=== PATIENT | female | born 1995 | race Caucasian/White ===

== ENCOUNTER 2022-07-28 00:05 | Inpatient (IN) | payer SELFPAY ==
[2022-07-28] MEDS ORDERED: Lidocaine 1% 50 ML MDV INJECT ONE (00:16)
[2022-07-28] MEDS ORDERED: Sodium Chloride 0.9% 10 ML Syringe FLUSH PRN (00:16)
[2022-07-28] MEDS ORDERED: Nalbuphine 10 MG/0.5 ML Syringe IVPUSH PRN (00:16)
[2022-07-28] MEDS: Lactated Ringers 1,000 ML IV SCH ×2 (00:25→01:11)
[2022-07-28] MEDS ORDERED: Oxytocin/Lactated Ringers 10 UNIT/1,000 ML BAG IV SCH (00:30)
[2022-07-28] MEDS ORDERED: diphenhydrAMINE 50 MG/ML SDV IVPUSH PRN (00:38)
[2022-07-28] MEDS ORDERED: fentaNYL 100 MCG/2 ML SDV EPIDUR PRN (00:38)
[2022-07-28] MEDS ORDERED: Bupivacaine/fentaNYL/NS 100 ML Bag EPIDUR PRN (00:38)
[2022-07-28] MEDS ORDERED: ePHEDrine 50 MG/ML SDV IVPUSH PRN (00:38)
[2022-07-28] MEDS ORDERED: Benzocaine/Menthol 20%-0.5% Spray 78 GM Cannister TOP PRN (05:03)
[2022-07-28] MEDS ORDERED: Witch Hazel Medicated Pads 40/Jar TOP PRN (05:03)
[2022-07-28] MEDS: Ibuprofen 600 MG Tab PO PRN ×2 (05:25→15:01)
[2022-07-28] MEDS ORDERED: Sodium Chloride 0.9% 10 ML Syringe FLUSH SCH (09:00)
[2022-07-28] MEDS: Acetaminophen 325 MG Tab PO PRN (20:07)
[2022-07-28] MEDS: Docusate Sodium 100 MG Cap PO PRN (20:08)
[2022-07-29] MEDS: Ibuprofen 600 MG Tab PO PRN (07:30)
[2022-07-29] MEDS: Docusate Sodium 100 MG Cap PO PRN (07:33)
[2022-07-29] MEDS: Acetaminophen 325 MG Tab PO PRN (11:17)
== END 2022-07-29 15:00 | disposition home or self-care (01) | DRG 807 ==
LOC: JD.OBCHECK 00:05 → JD.OB 00:10 → JD.OBCHECK 00:15 → JD.OB 00:16 → OBSVTOIN 01:34 → JD.MS 01:35 → JD.OB 18:36
PROVIDERS: ADMIT Obstetrics & Gynecology; ATTEND Obstetrics & Gynecology
PROC: 10D07Z6 Extraction of Products of Conception, Vacuum, Via Natural or Artificial Opening (ICD-10-PCS; principal; 2022-07-28)
PROC: 0KQM0ZZ Repair Perineum Muscle, Open Approach (ICD-10-PCS; 2022-07-28)
PROC: 10907ZC Drainage of Amniotic Fluid, Therapeutic from Products of Conception, Via Natural or Artificial Opening (ICD-10-PCS; 2022-07-28)
PROC: 3E0R3BZ Introduction of Anesthetic Agent into Spinal Canal, Percutaneous Approach (ICD-10-PCS; 2022-07-28)
PROC: 00HU33Z Insertion of Infusion Device into Spinal Canal, Percutaneous Approach (ICD-10-PCS; 2022-07-28)
DX: O60.14X0 Preterm labor third trimester with preterm delivery third trimester, not applicable or unspecified (principal); Z37.0 Single live birth; O77.0 Labor and delivery complicated by meconium in amniotic fluid; O70.1 Second degree perineal laceration during delivery; E66.01 Morbid (severe) obesity due to excess calories; O99.214 Obesity complicating childbirth; O34.219 Maternal care for unspecified type scar from previous cesarean delivery; Z3A.36 36 weeks gestation of pregnancy; Z90.49 Acquired absence of other specified parts of digestive tract; Z87.891 Personal history of nicotine dependence; Z88.8 Allergy status to other drugs, medicaments and biological substances; Z91.040 Latex allergy status
CPT/HCPCS: 36415; 59025; 59409; 85025; 86592; 86850; 86900; 86901; A9270-GY; J2590; J7120

== ENCOUNTER 2025-02-19 23:12 | Inpatient (IN) | payer MEDICAID ==
[2025-02-19] MEDS ORDERED: Lactated Ringers 1,000 ML IV SCH (23:30)
[2025-02-19] MEDS ORDERED: Ondansetron 4 MG/2 ML SDV IVPUSH PRN (23:30)
[2025-02-19] MEDS ORDERED: Nalbuphine 10 MG/1 ML Vial IVPUSH PRN (23:30)
[2025-02-19 23:58] LABS: BASOPHILS ABSOLUTE AUTO 0.0 K/mm3 (0.0-0.2); BASOPHILS PERCENT AUTO 0.1 % (0.0-1.0); EOSINOPHILS ABSOLUTE AUTO 0.1 K/mm3 (0.0-0.4); EOSINOPHILS PERCENT AUTO 1.1 % (0.0-6.0); IMMATURE GRAN ABSOLUTE AUTO 0.07 K/mm3 (0.00-0.05); IMMATURE GRAN PERCENT AUTO 0.6 % (0.0-0.4); LYMPHOCYTES ABSOLUTE AUTO 2.7 K/mm3 (1.0-4.8); LYMPHOCYTES PERCENT AUTO 24.5 % (24.0-44.0); MEAN PLATELET VOLUME 12.0 fl (9.4-12.3); MONOCYTES ABSOLUTE AUTO 0.7 K/mm3 (0.0-0.8); MONOCYTES PERCENT AUTO 6.6 % (0.0-8.0); NEUTROPHILS ABSOLUTE AUTO 7.4 K/mm3 (1.8-7.7); NEUTROPHILS PERCENT AUTO 67.1 % (41.0-71.0); NRBC ABSOLUTE 0.00 (0.00-0.02); NRBC PERCENT 0.0 % (0.0-0.2); PLATELET COUNT,PLT 209 K/mm3 (150-400); RED BLOOD CELL COUNT 4.11 M/mm3 (4.10-5.30); WHITE BLOOD CELL COUNT,WBC 11.01 K/mm3 (3.9-11.3)
[2025-02-20] MEDS: Oxytocin/0.9 % Sodium Chloride 30 UNIT/500 ML BAG IV SCH (02:44)
[2025-02-20] MEDS: Benzocaine/Menthol 20%-0.5% Spray 78 GM Cannister TOP PRN (06:05)
[2025-02-20] MEDS: Witch Hazel Medicated Pads 40/Jar TOP PRN (06:05)
[2025-02-20] MEDS ORDERED: Sodium Chloride 0.9% 10 ML Syringe FLUSH SCH (09:00)
[2025-02-21] MEDS: Magnesium Hydroxide 400 MG/5 ML Susp 30 ML Cup PO SCH (08:45)
== END 2025-02-22 09:36 | disposition home or self-care (01) | DRG 807 ==
LOC: JD.OBCHECK 23:12 → JD.OB 23:15 → JD.OBCHECK 23:30 → OBSVTOIN 02-20 03:10 → JD.OB 02-20 03:30
PROVIDERS: ADMIT Obstetrics & Gynecology; ATTEND Obstetrics & Gynecology
PROC: 10E0XZZ Delivery of Products of Conception, External Approach (ICD-10-PCS; principal; 2025-02-20)
DX: O42.02 Full-term premature rupture of membranes, onset of labor within 24 hours of rupture (principal); Z37.0 Single live birth; O77.0 Labor and delivery complicated by meconium in amniotic fluid; O99.62 Diseases of the digestive system complicating childbirth; K59.00 Constipation, unspecified; Z3A.38 38 weeks gestation of pregnancy; Z90.49 Acquired absence of other specified parts of digestive tract
CPT/HCPCS: 36415; 59025; 59409; 85025; 86592; 86850; 86900; 86901; A9270-GY; J7999